=== PATIENT | female | born 1945 | race Caucasian/White ===

== ENCOUNTER → 2018-04-05 | Outpatient (CLI) | payer MEDICARE, BC | END | disposition home or self-care (01) | LOC: PCVCIMAG 13:12 | DX: R55 Syncope and collapse (principal); R07.89 Other chest pain; R06.09 Other forms of dyspnea; E78.00 Pure hypercholesterolemia, unspecified; E11.9 Type 2 diabetes mellitus without complications; Z82.49 Family history of ischemic heart disease and other diseases of the circulatory system | CPT/HCPCS: 93325; 93351 ==

== ENCOUNTER → 2019-05-07 | Outpatient (CLI) | payer MEDICARE, BC | END | disposition home or self-care (01) | LOC: PCVCCLINIC 14:45 | PROVIDERS: ATTEND Internal Medicine Cardiovascular Disease | DX: E78.5 Hyperlipidemia, unspecified (principal); E78.00 Pure hypercholesterolemia, unspecified; I10 Essential (primary) hypertension; E11.9 Type 2 diabetes mellitus without complications; I95.1 Orthostatic hypotension; F32.9 Major depressive disorder, single episode, unspecified; Z82.49 Family history of ischemic heart disease and other diseases of the circulatory system; Z88.8 Allergy status to other drugs, medicaments and biological substances; Z79.899 Other long term (current) drug therapy | CPT/HCPCS: 36415; 80061; G0463 ==

== ENCOUNTER → 2019-07-11 | Outpatient (CLI) | payer MEDICARE, BC ==
--- NOTE | 2019-07-11 11:47 | PCVCIMAG ---
APPROVED REPORT Study performed: 07/11/2019 09:53:05 EXAM: Comprehensive 2D, Doppler, and color-flow Echocardiogram Patient Location: Echo lab Room #: 2Status: routine BSA: 2.02 HR: 55 bpmBP: 150/76 mmHg Rhythm: NSR Other Information Study Quality: Good Risk Factors: Cardiac Risk Factors: Hyperlipidemia, DM Indications Hypotension Murmur 2D Dimensions IVSd: 7.86 (7-11mm)LVOT Diam: 22.40 (18-24mm) LVDd: 45.41 mm PWd: 7.30 (7-11mm)Ascending Ao: 39.50 (22-36mm) LVDs: 22.08 (25-40mm) Left Atrium: 30.52 (27-40mm) Aortic Root: 32.86 mm LV Single Plane 4CH: 54.72 % LV Single Plane 2CH: 70.33 % Biplane EF: 64.0 % Volumes Left Atrial Volume (Systole) Single Plane 4CH: 63.21 mLSingle Plane 2CH: 51.97 mL Biplane LA Volume: 59.00 mLLA ESV Index: 29.00 mL/m2 Aortic Valve AoV Peak Matt.: 1.88 m/s AO Peak Gr.: 14.66 mmHgLVOT Max P.13 mmHg AO Mean Gr.: 8.41 mmHgLVOT Mean P.14 mmHg AO V2 Mean: 1.39 m/sLVOT Max V: 0.73 m/s AO V2 VTI: 45.68 cmLVOT Mean V: 0.50 m/s VONNIE (VTI): 1.60 [id number] V1 VTI: 18.60 cm VONNIE Vmax: 1.54 cm2 AI Vmax: 3.67 m/sSV (LVOT): 73.25 mL AI [place]: 1.18 m/s2 AI PHT: 904.89 ms Mitral Valve E/A Ratio: 0.9 MV Decel. Time: 260.38 ms MV E Max Matt.: 0.73 m/s MV A Matt.: 0.77 m/s IVRT: 93.43 ms TDI E/Lateral E': 12.17E/Medial E': 14.60 Medial E' Matt.: 0.05 m/s Lateral E' Matt.: 0.06 m/s Pulmonary Valve PV Peak Matt.: 0.86 m/sPV Peak Gr.: 2.93 mmHg Pulmonary Vein P Vein S: 0.54 m/sP Vein A: 0.29 m/s P Vein D: 0.31 m/sP Vein A Dur.: 124.6 msec P Vein S/D Ratio: 1.74 Tricuspid Valve TR Peak Matt.: 2.29 m/s TR Peak Gr.: 20.95 mmHg TV Vmax: 0.53 m/sPA Pressure: 28.00 mmHg Left Ventricle The left ventricle is normal size. There is normal LV segmental wall motion. There is normal left ventricular wall thickness. Left ventricular systolic function is normal. The left ventricular ejection fraction is within the normal range. LVEF is 60-65%. Findings suggest the left atrial pressure is elevated. The left ventricular diastolic function is normal. Right Ventricle The right ventricle is normal size. The right ventricular systolic function is normal. Atria The left atrium size is normal. The right atrium size is normal. Aortic Valve Aortic valve is trileaflet. Aortic valve leaflets are moderately sclerotic with mildly decreased opening. Mild aortic regurgitation. Mild to moderate aortic stenosis. Highest mean aortic valve gradient is 8.4 mmHg. Peak aortic valve gradient is 14.1 mmHg. Calculated VONNIE by the continuity equation is 1.5-1.6 cm2. Mitral Valve The mitral valve is normal in structure. There is no mitral valve regurgitation noted. No evidence of mitral valve stenosis. Tricuspid Valve The tricuspid valve is normal in structure. Mild tricuspid regurgitation with a PA pressure of 28 mmHg. No pulmonary hypertension. Pulmonic Valve The pulmonary valve is normal in structure. Mild to moderate pulmonic regurgitation. Great Vessels The aortic root is normal in size. Ascending aorta is dilated at 3.9 cm. Aortic arch is normal in caliber. IVC is normal in size and collapses >50% with inspiration. Pericardium There is no pericardial effusion. There is no pleural effusion. <Conclusion> The left ventricle is normal size. LVEF is 60-65%. Findings suggest the left atrial pressure is elevated. The left ventricular diastolic function is normal. The right ventricle is normal size. The left atrium size is normal. Aortic valve is trileaflet. Aortic valve leaflets are moderately sclerotic with mildly decreased opening. Mild aortic regurgitation. Mild to moderate aortic stenosis. Highest mean aortic valve gradient is 8.4 mmHg. Peak aortic valve gradient is 14.1 mmHg. Calculated VONNIE by the continuity equation is 1.5-1.6 cm2. Mild tricuspid regurgitation with a PA pressure of 28 mmHg. No pulmonary hypertension. Mild to moderate pulmonic regurgitation. There is no pericardial effusion.
== END | disposition home or self-care (01) ==
LOC: PCVCIMAG 09:58
PROVIDERS: ATTEND Internal Medicine Cardiovascular Disease
DX: I08.8 Other rheumatic multiple valve diseases (principal); G45.9 Transient cerebral ischemic attack, unspecified; E78.00 Pure hypercholesterolemia, unspecified; Z88.8 Allergy status to other drugs, medicaments and biological substances
CPT/HCPCS: 93306